=== PATIENT | male | born 1970 | race Caucasian/White ===

== ENCOUNTER 2022-02-17 10:09 | Outpatient (CLI) | payer OTHER, SELFPAY ==
--- NOTE | ~2022-02-17 | XR_ITS ---
EXAMINATION: XR hip LT 1V w AP pelvis DATE: 02/17/2022 10:37 INDICATION: Low back pain TECHNIQUE: Two views of left hip were obtained. COMPARISON: None. FINDINGS: Bone alignment is normal. There is no fracture. There is mild osteoarthritis. Surgical clip s are noted in the right pelvis. IMPRESSION: 1. No acute osseous abnormality. Reviewed, dictated and finalized at location A. DING MACHINE TENDER
--- NOTE | ~2022-02-17 | XR_ITS ---
EXAMINATION: XR lumbar spine 2-3V DATE: 02/17/2022 10:38 INDICATION: Low back pain, unspecified TECHNIQUE: Anteroposterior and lateral views of the lumbar spine, and cone-down lateral view of the l umbosacral junction were obtained. COMPARISON: 07/10/2014 FINDINGS: There are 2 mm of stable retrolisthesis of L3 on L4 and 4 mm stable retrocrural L4 on L5. T he vertebral body heights are maintained. There is no fracture. Small degenerative osteophytes projec t from the anterior endplates of multiple vertebral bodies. There is moderate facet joint osteoarthri tis lower lumbar spine. Surgical clips are noted in the right pelvis. IMPRESSION: 1. Mild lumbar spondylosis without acute findings or significant interval change. Reviewed, dictated and finalized at location A. N TILE MACHINE OPERATOR IMPRESSION: 1. Mild lumbar spondylosis without acute findings or significant interval shari chandler
== END 2022-02-17 10:10 | disposition home or self-care (01) ==
PROVIDERS: PCP Internal Medicine; Visit Provider Internal Medicine
DX: M79.652 Pain in left thigh (principal); M47.896 Other spondylosis, lumbar region
CPT/HCPCS: 72100; 73501

== ENCOUNTER 2022-05-04 09:15 | Outpatient (RCR) | payer OTHER, SELFPAY ==
--- NOTE | 2022-03-29 08:57 | PCPTNOTE ---
Patient called & cancelled scheduled appointment this date due to inclement weather. He has been rescheduled.
--- NOTE | 2022-03-30 15:12 | PCPTNOTE ---
Patient did not show up for scheduled initial evaluation this date.
--- NOTE | 2022-04-06 08:49 | PCPTNOTE ---
Patient called & cancelled scheduled appointment this date due to his transportation cancelling his ride. He has been rescheduled.
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
--- NOTE | 2022-05-09 15:30 | PCPTNOTE ---
Patient called to cancel appointment due to not being able to walk. Patient reports he must have done something to it on Sunday.
--- NOTE | 2022-05-11 10:09 | PCPTNOTE ---
Patient canceled appointment due to food poisoning.
--- NOTE | 2022-05-16 14:10 | PCPTNOTE ---
Patient called to cancel less than 24 hours before due to work.
--- NOTE | 2022-05-16 14:12 | PCPTNOTE ---
Patient called to cancel appointment 05/18 due to having to work.
--- NOTE | 2022-05-29 09:49 | PTOPDC ---
Assessment and note entered by Arlyn Marquez DPT Evaluation Information Assessment Status Discharge - Pt Not Present Subjective Information Assessment PT Clinical Summary Patient is being discharged from therapy at this time. He had cancelled multiple times and stated he would not be able to reschedule for awhile. He will need a new script to resume therapy in the future. Plan of Care Interventions PT Services Indicated Treatment Frequency and - Duration
== END 2022-05-30 10:04 | disposition home or self-care (01) ==
LOC: ANHGOSHPT 09:15
PROVIDERS: PCP Internal Medicine; Visit Provider Internal Medicine
DX: M54.50 Low back pain, unspecified (principal)
CPT/HCPCS: 97110; 97112; 97162; 97530; 99199

== ENCOUNTER 2022-05-08 15:06 | Emergency (ER) | payer OTHER, SELFPAY ==
[2022-05-08 15:13] VITALS: BP 136/91; PULSE 89; RESP 16; TEMP 36.4; O2SAT 100
--- NOTE | 2022-05-08 16:03 | ED.BACK ---
HPI - Back Pain/Injury General Chief Complaint: Back Pain/Injury Stated Complaint: difficulty walking, lower back pain Time Seen by Provider: 05/08/22 16:04 Source: patient, RN notes reviewed and old records reviewed Mode of arrival: ambulatory Limitations: no limitations History of Present Illness HPI Narrative: 51 year old male who presents to [facility] care with complaints of low back pain and difficulty walking. Patient states that he has been attending physical therapy and it really wears him out but then his employer will have him come to work after therapy and it is too much for him. He reports that he has told him work to not schedule him on days he has therapy but they have not been compliant and even have scheduled him at times when he is suppose to be at therapy. Patient reports that he has pain to his lower left back which radiates down his left leg to his knee,reports he has some spasms also. He had been previously prescribed gabapentin and Flexeril but they made him feel like a zombie so he threw them away. Patient instructed to try one and not the other at same time to see if he can tolerate either med. Patient is daily smoker also reports alcohol use and does smoke some marijuana for his anxiety and pain. Patient denies any new injury to his back MD elicited complaint: back pain Pertinent past history: other (chronic back pain) Pain scale (0-10): 3 Location: left lower back (down left leg) Exacerbating factors: movement Treatments prior to arrival: NSAIDS Work related injury: No Related Data Allergies Allergy/AdvReac Type Severity Reaction Status Date / Time No Known Drug Allergies Allergy Mild Other Verified 03/02/22 09:36 Review of Systems Review of Systems: CONSTITUTIONAL: Denies fever, chills, or sweats. CARDIOVASCULAR: Denies chest pain, palpitations, or edema. RESPIRATORY: Denies cough or dyspnea. GASTROINTESTINAL: Denies abdominal pain, nausea, vomiting, or diarrhea. GENITOURINARY: Denies dysuria or hematuria. SKIN: Denies rash or itching. MUSCULOSKELETAL: Reports lower back pain with radiation down left leg into thigh which stops at knee. Joint pain or myalgia. NEUROLOGIC: Denies headache, numbness, or weakness. All systems reviewed & are unremarkable except as noted in HPI and below PMFSH Past Medical History Medical History (Updated 05/09/22 @ 15:14 by Jessica Dempsey NP) GERD (gastroesophageal reflux disease) Hernia double Low back pain Rib fracture Ruptured appendix Surgical History Surgical History H/O hernia repair Hx of appendectomy Family History Family History (Updated 01/16/22 @ 13:13 by Kyle Avalos MD) Father Family history of malignant neoplasm Patient's father is Sibling Family history of malignant neoplasm Patient's sister is in good health Patient's brother is in good health Mother Family history of diabetes mellitus in first degree relative Patient's mother is in good health Diabetes mellitus Cerebrovascular accident Hypertension Social History Social History (Updated 05/09/22 @ 15:05 by Jessica Dempsey NP) Smoking packs per day: 1 Smoking cigarettes per day: 20.0 Years smoked: 30 Smoking pack-years: 30.00 Smoking status: Current every day smoker Tobacco type: cigarettes Alcohol intake: current Alcohol use details: Whiskey 2/5th per week Substance use: current Substance use type: marijuana Last use: this am Lack of Transportation: No Lack of Food: Sometimes True Current Housing: I Have Housing Concerned About Future Housing: No Difficulty Paying Gas/Electric Bills: No Difficulty Paying for Meds: No Currently Unemployed: No Education: High School Diploma/GED Difficulty w/ Childcare or Family Care: No Gender identity (if verbalized by the patient): Male Comments At time of signature, agree with nursing past medical, surgical, social an
== END 2022-05-08 16:27 | disposition home or self-care (01) ==
PROVIDERS: Emergency Provider Registered Nurse; PCP Internal Medicine
DX: M54.50 Low back pain, unspecified (principal); F17.210 Nicotine dependence, cigarettes, uncomplicated; F12.90 Cannabis use, unspecified, uncomplicated; K21.9 Gastro-esophageal reflux disease without esophagitis
CPT/HCPCS: 99213; G0463

== ENCOUNTER 2022-07-21 11:50 | Emergency (ER) | payer OTHER, SELFPAY ==
--- NOTE | ~2022-07-21 | XR_ITS ---
EXAMINATION: XR hip LT min 2V DATE: 07/21/2022 12:23 INDICATION: Left hip pain. TECHNIQUE: 2 views of left hip were obtained. COMPARISON: Left hip radiographs 02/17/2022 FINDINGS: Bone alignment is normal. No fracture. There is moderate left hip osteoarthritis. There is a chronic ossicle lateral to the acetabulum. IMPRESSION: 1. Moderate left hip osteoarthritis. Reviewed, dictated and finalized at location A.
--- NOTE | 2022-07-21 11:53 | ED.EXTPRO ---
HPI - Extremity Problem General Chief complaint: Extremity Injury, Lower Stated complaint: L LEG PAIN Time Seen by Provider: 07/21/22 11:52 Source: patient Mode of arrival: ambulatory Limitations: no limitations History of Present Illness HPI Narrative: Mr. Mello is a 52-year-old male patient presenting to the clinic with complaints of left hip/thigh/knee pain x2 months. He reports he has had images done of his left hip and knee that has shown some arthritis. States he was completing physical therapy for his back and now he has developed leg pain but his back pain has improved. States that his sister by him a new mattress and he feels as though this improved his back pain however he stated he did fall out of bed and landed on the left elbow and left hip on Sunday and has exacerbated the pain in his hip. Is wearing a knee brace to the knee and states that this is not currently hurting however he has to wear the knee brace as he feels as though his knee will give out due to the pain in his hip. 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 Pain is currently a 4/10. States that the pain is shooting in the left hip and aching in the knee. No recent injury to his knee. Related Data Allergies Allergy/AdvReac Type Severity Reaction Status Date / Time No Known Drug Allergies Allergy Mild Other Verified 07/21/22 11:58 Review of Systems Review of Systems: Pertinent positives per HPI. Patient denies any fever, chills, rash, headache, visual changes, dizziness, cough, runny nose, sore throat, shortness of breath, chest pain, palpitations, nausea, vomiting, diarrhea, constipation, abdominal pain, or any urinary issues. [facility] Past Medical History Medical History GERD (gastroesophageal reflux disease) Hernia double Low back pain Rib fracture Ruptured appendix Surgical History Surgical History H/O hernia repair Hx of appendectomy Family History Family History Father Family history of malignant neoplasm Patient's father is Sibling Family history of malignant neoplasm Patient's sister is in good health Patient's brother is in good health Mother Family history of diabetes mellitus in first degree relative Patient's mother is in good health Diabetes mellitus Cerebrovascular accident Hypertension Social History Social History Smoking packs per day: 1 Smoking cigarettes per day: 20.0 Years smoked: 30 Smoking pack-years: 30.00 Smoking status: Current every day smoker Tobacco type: cigarettes Alcohol intake: current Alcohol use details: Whiskey 2/5th per week Substance use: current Substance use type: marijuana Last use: this am Lack of Transportation: No Lack of Food: Sometimes True Current Housing: I Have Housing Concerned About Future Housing: No Difficulty Paying Gas/Electric Bills: No Difficulty Paying for Meds: No Currently Unemployed: No Education: High School Diploma/GED Difficulty w/ Childcare or Family Care: No Gender identity (if verbalized by the patient): Male Comments At the time of my signature, I reviewed and agree with the nursing past medical, surgical, social, and family history. There is no relevant family history pertinent to the patient complaint. Exam Narrative: General: Well-developed, well nourished, in no apparent distress Head: Normocephalic, atraumatic. Cardio: Regular rate and rhythm, s1 and s2 normal, no murmur appreciated. Resp: Clear to auscultation bilaterally, no rhonchi, rales, wheezing or rubs. Musculoskeletal: No deformity, tender to palpation over the anterior hip joint, pain with flexion of the left hip and internal rotation, nontender to palpation over the lef
[2022-07-21 12:04] VITALS: BP 115/92; PULSE 85; RESP 16; TEMP 36.6; O2SAT 99
== END 2022-07-21 12:39 | disposition home or self-care (01) ==
PROVIDERS: Emergency Provider Nurse Practitioner Family; PCP Internal Medicine
DX: M16.12 Unilateral primary osteoarthritis, left hip (principal); M25.562 Pain in left knee; F17.210 Nicotine dependence, cigarettes, uncomplicated; F12.90 Cannabis use, unspecified, uncomplicated; K21.9 Gastro-esophageal reflux disease without esophagitis
CPT/HCPCS: 73502; 99213; G0463

== ENCOUNTER 2022-10-15 20:12 | Emergency (ER) | payer OTHER, SELFPAY ==
--- NOTE | ~2022-10-15 | CT_ITS ---
EXAMINATION: CT cervical spine wo con DATE: 10/15/2022 20:46 INDICATION: Head injury. TECHNIQUE: Computed tomography (CT) of the cervical spine was performed without intravenous contrast. Automated exposure control and iterative reconstruction technique were employed. The dose-length pro duct was 532.49 mGy-cm. COMPARISON: CT cervical spine 01/21/2015 FINDINGS: There is a 3.6 cm subcutaneous mass in the posterior neck, likely a sebaceous cyst. There i s 8 degrees levocurvature of cervicothoracic spine. There is hypolordosis of cervical spine. Vertebra l body heights are normal. There is mildly decreased disc height at C3-C4, moderately decreased disc height at C4-C5, mildly decreased disc height at C5-C6, and severely decreased disc height at C6-C7. The following disc levels are specifically discussed: C2-C3: There is mild bilateral uncovertebral joint osteoarthritis. There is mild bilateral facet join t osteoarthritis. There is no neural foraminal stenosis. There is no central canal stenosis. C3-C4: There is severe bilateral uncovertebral joint osteoarthritis. There is no facet joint osteoart hritis. There is mild right neural foraminal stenosis. There is no central canal stenosis. C4-C5: There is severe bilateral uncovertebral joint osteoarthritis. There is no facet joint osteoart hritis. There is moderate right and mild left neural foraminal stenosis. There is mild central canal stenosis. C5-C6: There is mild bilateral uncovertebral joint osteoarthritis. There is no facet joint osteoarthr itis. There is no neural foraminal stenosis. There is mild central canal stenosis. C6-C7: There is severe bilateral uncovertebral joint osteoarthritis. There is mild bilateral facet josé int osteoarthritis. There is mild right and moderate left neural foraminal stenosis. There is mild ce ntral canal stenosis. C7-T1: There is no uncovertebral joint osteoarthritis. There is mild bilateral facet joint osteoarthr itis. There is no neural foraminal stenosis. There is no central canal stenosis. IMPRESSION: 1. No fracture. 2. Severe cervical spondylosis. Reviewed, dictated and finalized at location E.
--- NOTE | ~2022-10-15 | CT_ITS ---
EXAMINATION: CT brain wo con DATE: 10/15/2022 20:46 INDICATION: Head injury. TECHNIQUE: Computed tomography (CT) of the head was performed without intravenous contrast. The mA wa s adjusted according to patient size. Iterative reconstruction technique was employed. The dose-lengt h product was 605.33 mGy-cm. COMPARISON: Head CT 01/21/2015 FINDINGS: There is no intracranial hemorrhage, acute infarction, or abnormal intracranial mass lesion . The ventricles are normal in size. There is mild mucosal thickening in the ethmoid sinuses. The orb its are normal. The mastoid air cells are normal. IMPRESSION: 1. Normal brain. Reviewed, dictated and finalized at location E. IMPRESSION: 1. Normal brain.
[2022-10-15 20:12] VITALS: BP 115/80; PULSE 75; RESP 15; TEMP 36.5; O2SAT 98
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
[2022-10-15] MEDS: TETANUS,DIPHTHERIA,AC PERTUSSIS ADULT (0.5 ML) BOOSTRIX IM (21:01)
[2022-10-15 21:18] VITALS: BP 128/74; PULSE 78; RESP 15; O2SAT 100
== END 2022-10-15 21:23 | disposition home or self-care (01) ==
PROVIDERS: Emergency Provider Emergency Medicine; PCP Family Medicine
DX: S01.01XA Laceration without foreign body of scalp, initial encounter (principal); Z23 Encounter for immunization; K21.9 Gastro-esophageal reflux disease without esophagitis; F17.210 Nicotine dependence, cigarettes, uncomplicated; W01.190A Fall on same level from slipping, tripping and stumbling with subsequent striking against furniture, initial encounter
CPT/HCPCS: 70450; 72125; 90471; 90715; 99284

== ENCOUNTER 2023-01-09 01:34 | Day surgery (SDC) | payer OTHER, SELFPAY ==
[2022-12-07 15:19] VITALS: BMI 28.8
--- NOTE | 2023-01-01 16:03 | SUR.PREOP ---
Spoke with patient and verified new date and time for his procedure on 01/09/2023. Patient stated no new medications or medical hx needs to be added to chart.
--- NOTE | 2023-01-05 11:41 | SUR.PREOP ---
Patient called regarding upcoming procedure. Message left on patient's voicemail regarding preop instructions and appointment times. call back number given.
[2023-01-09 11:45] VITALS: BP 159/91; PULSE 89; RESP 18; TEMP 36.2; O2SAT 99
[2023-01-09] MEDS: LACTATED RINGERS 1,000 ML 150 ML IV CONT (11:55)
--- NOTE | 2023-01-09 12:15 | WPDANESEPPF ---
Anes - Initial Pre Proc Eval Procedure: Operation Date: 01/09/23 13:00 Proposed Procedures p Colonoscopy - Albert Ramirez MD Date/Time: 01/09/23 12:15 Surgeon: Albert Ramirez MD Pre Op Diagnosis: Other fecal abnormalities Patient Data Age: 52 Gender: M Height: 1.78 m Weight: 93.6 kg Last Vital Signs Temp 97.2 F L 01/09/23 11:45 Pulse 89 01/09/23 11:45 Resp 18 01/09/23 11:45 BP 159/91 H 01/09/23 11:45 Pulse Ox 99 01/09/23 11:45 O2 Del Method Room Air 01/09/23 11:45 Allergies Allergy/AdvReac Type Severity Reaction Status Date / Time No Known Drug Allergies Allergy Mild Other Verified 01/09/23 11:43 Home Medications Medication Instructions Recorded Confirmed Type thiamine HCl (vitamin B1) 50 mg 50 mg PO DAILY #90 tabs 03/02/22 12/07/22 Rx tablet ibuprofen 800 mg tablet 800 mg PO TID PRN pain #90 tabs 10/30/22 12/07/22 Rx cyclobenzaprine 10 mg tablet 10 mg PO Q12H PRN muscle spasm #60 12/08/22 01/09/23 Rx tabs Patient hx anesthesia problems: none Family hx anesthesia problems: none Results Review: All pre-operative results and documents have been reviewed as part of the pre-operative evaluation. [facility] Past Medical History Medical History GERD (gastroesophageal reflux disease) Hernia double Low back pain Rib fracture Ruptured appendix Surgical History Surgical History H/O hernia repair Hx of appendectomy Family History Family History Father Family history of malignant neoplasm Patient's father is Sibling Family history of malignant neoplasm Patient's sister is in good health Patient's brother is in good health Mother Family history of diabetes mellitus in first degree relative Patient's mother is in good health Diabetes mellitus Cerebrovascular accident Hypertension Social History Social History Smoking packs per day: 1 Smoking cigarettes per day: 20.0 Years smoked: 40 Smoking pack-years: 40.00 Smoking status: Current every day smoker Tobacco type: cigarettes Alcohol intake: current Alcohol use details: 5-6 fifths of alcohol a week Substance use: current Substance use type: marijuana Last use: 12/07/22 Lack of Transportation: No Lack of Food: Never True Current Housing: I Have Housing Concerned About Future Housing: No Difficulty Paying Gas/Electric Bills: No Difficulty Paying for Meds: No Currently Unemployed: No Education: High School Diploma/GED Difficulty w/ Childcare or Family Care: No Living arrangements: alone Gender identity (if verbalized by the patient): Male Anes - Eval Final PreProcedure Day of Procedure 01/09/23 12:15 Patient weight: normal Heart: irregular rhythm Lungs: clear to auscultation Airway: Mallampati scale (poor dentition) Neurological: alert and oriented Last oral intake: >/= 8 hours ASA classification: III Emergent: no Anesthetic plan: proceed Anesthesia type and monitoring: general GIVS and standard monitoring Results Review: All pre-operative results and documents have been reviewed as part of the pre-operative evaluation. Informed Consent: The patient's anesthetic plan and its attendant risks and benefits were discussed with the patient/family/POA. Questions were solicited and answers provided to the satisfaction of the patient/family/POA.
--- NOTE | 2023-01-09 12:34 | PM.HPGS ---
History of Present Illness History of Present Illness Consent: Risks, benefits, and alternatives have been discussed and questions answered. Patient agrees to proceed with procedure. Chief complaint: Other fecal abnormalities Narrative: Krishna Mello is a 52 year old male here for first screening colonoscopy, had + cologuard Review of Systems Constitutional: Constitutional: Denies headache(s) and Denies weakness Eyes: Eyes: Denies blurry vision ENT: Reports Normal hearing present, Denies headache(s) and Denies neck pain Cardiovascular: Cardiovascular: Denies chest pain and Denies dyspnea Respiratory: Respiratory: Denies dyspnea Gastrointestinal: Gastrointestinal: Reports no additional gastrointestinal complaints Genitourinary: Genitourinary: Denies dysuria Musculoskeletal: Musculoskeletal: Denies neck pain Integumentary/Breasts: Skin/Breast: Denies dry skin Neurologic: Reports Normal hearing present, Denies headache(s) and Denies weakness Psychiatric: Psychiatric: Denies anxiety Endocrine: Endocrine: Denies change in body appearance Hematologic/Lymphatic: Hematologic/Lymphatic: Denies easy bleeding Allergic/Immunologic: Allergic/Immunologic: Denies urticaria PMFSH Past Medical History Medical History GERD (gastroesophageal reflux disease) Hernia double Low back pain Rib fracture Ruptured appendix Surgical History Surgical History H/O hernia repair Hx of appendectomy Family History Family History Father Family history of malignant neoplasm Patient's father is Sibling Family history of malignant neoplasm Patient's sister is in good health Patient's brother is in good health Mother Family history of diabetes mellitus in first degree relative Patient's mother is in good health Diabetes mellitus Cerebrovascular accident Hypertension Social History Social History Smoking packs per day: 1 Smoking cigarettes per day: 20.0 Years smoked: 40 Smoking pack-years: 40.00 Smoking status: Current every day smoker Tobacco type: cigarettes Alcohol intake: current Alcohol use details: 5-6 fifths of alcohol a week Substance use: current Substance use type: marijuana Last use: 12/07/22 Lack of Transportation: No Lack of Food: Never True Current Housing: I Have Housing Concerned About Future Housing: No Difficulty Paying Gas/Electric Bills: No Difficulty Paying for Meds: No Currently Unemployed: No Education: High School Diploma/GED Difficulty w/ Childcare or Family Care: No Living arrangements: alone Gender identity (if verbalized by the patient): Male Meds Home Medications and Allergies Home Medications Medication Instructions Recorded Confirmed Type thiamine HCl (vitamin B1) 50 mg 50 mg PO DAILY #90 tabs 03/02/22 12/07/22 Rx tablet ibuprofen 800 mg tablet 800 mg PO TID PRN pain #90 tabs 10/30/22 12/07/22 Rx cyclobenzaprine 10 mg tablet 10 mg PO Q12H PRN muscle spasm #60 12/08/22 01/09/23 Rx tabs Allergies Allergy/AdvReac Type Severity Reaction Status Date / Time No Known Drug Allergies Allergy Mild Other Verified 01/09/23 11:43 Vital Signs Vital Signs - 24 hr 01/09/23 11:45 Temperature 97.2 F L Pulse Rate 89 Respiratory Rate 18 Blood Pressure 159/91 H Pulse Oximetry 99 Oxygen Delivery Room Air Exam Const: General: comfortable and no acute distress HENMT: Face/Nose/Sinus: Normal nares present Eyes: General: appearance normal, both eyes and all related structures Neck: Neck: no JVD Resp: Auscultation: clear to auscultation bilaterally Cardio: Rate: regular rate Rhythm: regular rhythm GI: Inspection: non-distended GI Palp: Yes Soft to palpation
[2023-01-09 13:01] VITALS: BP 115/65; PULSE 78; RESP 17; O2SAT 96
[2023-01-09 13:11] VITALS: BP 125/86; PULSE 78; RESP 25; O2SAT 100
[2023-01-09 13:21] VITALS: BP 142/92; PULSE 79; RESP 21; O2SAT 100
== END 2023-01-09 13:27 | disposition home or self-care (01) ==
PROVIDERS: PCP Family Medicine; Visit Provider Internal Medicine Gastroenterology
PROC: 0DJD8ZZ Inspection of Lower Intestinal Tract, Via Natural or Artificial Opening Endoscopic (ICD-10-PCS; CPT 45378; principal; 2023-01-09 13:00)
DX: K52.9 Noninfective gastroenteritis and colitis, unspecified (principal); K62.6 Ulcer of anus and rectum; K63.5 Polyp of colon; R19.5 Other fecal abnormalities; F17.210 Nicotine dependence, cigarettes, uncomplicated; F12.90 Cannabis use, unspecified, uncomplicated
CPT/HCPCS: 45385; 45380; 88305; J2704; J7120

== ENCOUNTER 2023-04-25 11:12 | Outpatient (CLI) | payer OTHER, SELFPAY ==
--- NOTE | ~2023-04-25 | XR_ITS ---
Left Knee Technique: AP, lateral, and sunrise views were obtained. Clinical History: Pain Findings: No fracture or dislocation is seen. Osseous alignment is anatomic. Joint spaces are preserv ed without degenerative or erosive change. Soft tissues are unremarkable. No joint effusion is seen. Impression: Unremarkable left knee radiographs. Reviewed, dictated and finalized at location . BILITATION COORDINATOR Impression: Unremarkable left knee radiographs.
== END 2023-04-25 11:13 | disposition home or self-care (01) ==
PROVIDERS: PCP Family Medicine; Visit Provider Family Medicine
DX: M25.562 Pain in left knee (principal)
CPT/HCPCS: 73562

== ENCOUNTER 2023-05-07 17:52 | Outpatient (CLI) | payer OTHER, SELFPAY ==
--- NOTE | ~2023-05-07 | XR_ITS ---
EXAMINATION: XR femur LT min 2V INDICATION: Left leg pain TECHNIQUE: Two views of the left femur are obtained on four radiographs. COMPARISON: 07/21/2022 FINDINGS: Bone alignment is normal. There is no fracture. There is moderate osteoarthritis of the hip . Again noted is a chronic ossicle lateral to the acetabulum. There is mild osteoarthritis of the kne e. The soft tissues are unremarkable. IMPRESSION: 1. Unchanged moderate osteoarthritis of the left hip without acute osseous abnormality of the femur. Reviewed, dictated and finalized at location L. EDICAL PHOTOGRAPHER IMPRESSION: 1. Unchanged moderate osteoarthritis of the left hip without acute osseous abno rmality of the femur.
== END 2023-05-07 17:53 | disposition home or self-care (01) ==
LOC: ANHIMG 17:53
PROVIDERS: PCP Family Medicine; Visit Provider Family Medicine
DX: M79.652 Pain in left thigh (principal)
CPT/HCPCS: 73552

== ENCOUNTER 2023-08-08 23:33 | Emergency (ER) | payer OTHER, SELFPAY ==
--- NOTE | ~2023-08-08 | CT_ITS ---
Noncontrast CT scan of the cervical spine Technique: Multiple contiguous axial [address] images of the cervical spine were obtained and rec onstructed in 2D sagittal and coronal planes on the acquisition scanner. Dose reduction technique was used on this scan by utilizing automated exposure control, adjustment of the mA and/or kV according to patient size. The dose-length product (DLP) was 464.08 mGy-cm. Clinical History: Pain COMPARISON: 10/15/2022 Findings: No fractures or dislocations. There is mild reversal normal cervical lordosis. There is mi ld degenerative disc changes throughout the cervical spine. There is mild uncovertebral joint degener ative change of the cervical spine. There is right neural foraminal narrowing at C4-C5, with right fo raminal osteophyte and minimal facet arthropathy. There is disc bulge at C5-C6, with probable mild to moderate canal stenosis. There is bilateral neural foraminal narrowing at C6-C7, right worse than le ft. Probable disc ossify complex present, with probable at least mild canal stenosis. Suspected at le ast mild canal stenosis at C4-C5 with disc bulge. No prevertebral soft tissue swelling. Impression: No fracture or subluxation of the cervical spine. Degenerative spondylosis, as above. Reviewed, dictated and finalized at location . Impression: No fracture or subluxation of the cervical spine. Degenerative spondylosis, as above.
--- NOTE | ~2023-08-08 | CT_ITS ---
Non-contrast Head CT History: Head injury COMPARISON: 10/15/2022 Technique: Axial non-contrast imaging of the brain was performed. Dose reduction technique was used on this scan by utilizing automated exposure control and iterative reconstruction technique. The dose -length product (DLP) was 605.33 mGy-cm. Findings: There is acute subarachnoid hemorrhage in the bifrontal regions. Brain parenchyma appears normal. The ventricles and subarachnoid spaces are normal in size. The calvarium appears normal. The visualized paranasal sinuses and mastoid air cells are clear. Impression: Acute subarachnoid hemorrhage in the bifrontal regions. Reviewed, dictated and finalized at location M. Impression: Acute subarachnoid hemorrhage in the bifrontal regions.
[2023-08-08 23:32] VITALS: BP 149/95; PULSE 101; RESP 18; TEMP 36.7; O2SAT 93
[2023-08-08 23:39] VITALS: BP 149/95; PULSE 99; RESP 15; O2SAT 93
[2023-08-08 23:46] VITALS: BP 154/128; PULSE 100; RESP 18; O2SAT 91
--- NOTE | 2023-08-09 00:41 | ED.FALL ---
HPI - Fall General Chief Complaint: Fall <CARISSA Pack Last Filed: 08/09/23 02:12> Stated Complaint: fall/etoh <CARISSA Pack Last Filed: 08/09/23 02:12> Time Seen by Provider: 08/08/23 23:59 <CARISSA Pack Last Filed: 08/09/23 02:12> Source: patient <CARISSA Pack Last Filed: 08/09/23 02:12> Mode of arrival: ambulatory <CARISSA Pack Last Filed: 08/09/23 02:12> Limitations: no limitations <CARISSA Pack Last Filed: 08/09/23 02:12> History of Present Illness HPI Narrative: This is a 53-year-old male with PMH of HLD, alcohol abuse who presents to the ED via EMS for chief complaint of a fall at the bar this evening. Patient reports that he had about 3 pints of beer to drink. Also endorses marijuana use. He is unsure of what happened this evening pertaining to the fall. He does reports severe headache. Per EMS patient was found down and unsure how long he was down. He suffered a wound and bruise to the back of the head. Patient reports that he has had facial droopiness that is chronic due to stroke in the past. Does not take any blood thinners. <CARISSA Pack Last Filed: 08/09/23 02:12> Related Data Allergies/Adverse Reactions: Allergies Allergy/AdvReac Type Severity Reaction Status Date / Time No Known Drug Allergies Allergy Mild Other Verified 08/08/23 23:44 <CARISSA Pack Last Filed: 08/09/23 02:12> Review of Systems Review of Systems: All systems as dictated in HPI <CARISSA Pack Last Filed: 08/09/23 02:12> [facility] Past Medical History Medical History: Medical History GERD (gastroesophageal reflux disease) Hernia double Low back pain Rib fracture Ruptured appendix <CARISSA Pack Last Filed: 08/09/23 02:12> Surgical History Surgical History: Surgical History H/O hernia repair Hx of appendectomy <CARISSA Pack Last Filed: 08/09/23 02:12> Family History Family History: Family History Father Family history of malignant neoplasm Patient's father is Sibling Family history of malignant neoplasm Patient's sister is in good health Patient's brother is in good health Mother Family history of diabetes mellitus in first degree relative Patient's mother is in good health Diabetes mellitus Cerebrovascular accident Hypertension <CARISSA Pack Last Filed: 08/09/23 02:12> Social History Social History: Social History Smoking packs per day: 1 Smoking cigarettes per day: 20.0 Years smoked: 40 Smoking pack-years: 40.00 Smoking status: Current every day smoker Tobacco type: cigarettes Alcohol intake: current Alcohol use details: 5-6 fifths of alcohol a week Substance use: current Substance use type: marijuana Last use: 12/07/22 Lack of Transportation: No Lack of Food: Never True Current Housing: I Have Housing Concerned About Future Housing: No Difficulty Paying Gas/Electric Bills: No Difficulty Paying for Meds: No Currently Unemployed: No Education: High School Diploma/GED Difficulty w/ Childcare or Family Care: No Living arrangements: alone Gender identity (if verbalized by the patient): Male <CARISSA Pack Last Filed: 08/09/23 02:12> Exam Narrative: GENERAL: Well-appearing, well-nourished, and in no acute distress. HEAD: bruising and swelling to the occiput and top of the scalp. Tenderness throughout these areas. EYES: PERRLA and EOMI. ENT: Nares clear, no rhinorrhea or epistaxis. Mucous membranes moist. Oropharynx without tonsillar hypertrophy exudate or other lesions. NECK: Supple. No adenopathy or masses. CHEST: No respirat
[2023-08-09] MEDS: SODIUM CHLORIDE 0.9% IV 1,000 ML 999 ML IV CONT (00:43)
[2023-08-09] MEDS: MORPHINE SULFATE (*CRX) 4 MG/ML INJ IV PUSH (00:43)
[2023-08-09] MEDS: ONDANSETRON INJ 4 MG/2 ML VIAL IV PUSH (00:43)
[2023-08-09 00:50] LABS: Basophils Absolute Auto 0.1 K/mm3 (0.0-0.1); Basophils Percent Auto 1.1 % (0.2-1.2); Eosinophils Absolute Auto 0.3 K/mm3 (0-0.3); Eosinophils Percent Auto 4.2 % (0-4.4); Hematocrit 43.4 % (42.0-52.0); Hemoglobin 14.9 g/dL (14.0-18.0); Immature Granulocyte Absolute 0.01 K/mm3 (0.00-0.031); Immature Granulocyte Percent A 0.1 % (0-0.5); Lymphocytes Absolute Auto 1.88 K/mm3 (0.9-3.2); Lymphocytes Percent Auto 25.4 % (18.3-44.2); Mean Corpuscular HGB Conc 34.3 g/dl (32-36); Mean Corpuscular Hemoglobin 33.4 pg (26-34); Mean Corpuscular Volume 97.3 fl (80-100); Mean Platelet Volume 8.6 fl (7.4-10.4); Monocytes Absolute Auto 0.5 K/mm3 (0.1-0.6); Neutrophils Absolute Auto 4.6 K/mm3 (1.3-6.7); Neutrophils Percent Auto 62.2 % (45.5-73.1); Platelet Count Result 156 k/mm3 (150-375); Red Blood Count 4.46 M/mm3 (4.6-6.20); Red Cell Distribution Width 13.1 % (11.5-14.5); White Blood Count 7.4 K/mm3 (4.5-10.0)
--- NOTE | 2023-08-09 00:51 | PC.NURSE ---
This RN called the pt sister at this time to stone rigger her an update on pt status. Pt stat rad came back and showed a brain bleed. Pt states its okay to call his sister and stone rigger he an update. Yunior GRAY notified getting a hold of [facility] for transfer.
[2023-08-09 01:01] LABS: Alanine Aminotransferase 42 U/L (6-50); Albumin Level 5.1 g/dL (3.5-5.1); Alkaline Phosphatase 58 U/L (38-126); Anion Gap 11 mmol/L (4-12); Aspartate Amino Transferase 53 U/L (17-59); Bilirubin,Total 0.8 mg/dL (0.2-1.3); Blood Urea Nitrogen 16 mg/dL (9-20); Calcium 9.4 mg/dL (8.4-10.2); Carbon Dioxide 23 mmol/L (22-30); Chloride 104 mmol/L (98-107); Estimated CRCL calculation 80 ml/min; Estimated Glomerular Filt Rate > 60; Glucose 107 mg/dL (65-110); Potassium 3.9 mmol/L (3.4-5.0); Sodium 138 mmol/L (137-145)
[2023-08-09 01:05] VITALS: BP 153/90; PULSE 90; RESP 24; O2SAT 94
[2023-08-09 01:07] VITALS: BP 153/90; PULSE 89; RESP 15; O2SAT 94
[2023-08-09 01:07] LABS: Prothrombin Time 13.7 Seconds (11.1-14.7)
--- NOTE | 2023-08-09 01:13 | PC.NURSE ---
Pt has had multiple complaints regarding C collar. Verbal order from Yunior KERR to remove C collar.
--- NOTE | 2023-08-09 01:17 | PC.NURSE ---
0104: This RN gave report to Yosvany at [facility] ED. All paper work finished. Printed pt ED visit form and scan reports for [facility]. Helicopter notified and states they will be here in 11 minutes.
--- NOTE | 2023-08-09 01:38 | PC.NURSE ---
This RN called pt sister to give update that pt has left the hospital and is now heading to [facility].
== END 2023-08-09 01:44 | disposition short-term general hospital (02) ==
PROVIDERS: Emergency Provider Physician Assistant; PCP Family Medicine
DX: I60.9 Nontraumatic subarachnoid hemorrhage, unspecified (principal); W19.XXXA Unspecified fall, initial encounter; K21.9 Gastro-esophageal reflux disease without esophagitis; F17.210 Nicotine dependence, cigarettes, uncomplicated
CPT/HCPCS: 36415; 70450; 72125; 80053; 85025; 85610; 85730; 96361; 96374; 96375; 99291; J2270; J2405; J7030

== ENCOUNTER 2023-12-17 13:21 | Outpatient (CLI) | payer OTHER, SELFPAY ==
--- NOTE | ~2023-12-17 | XR_ITS ---
Clinical Indication: Trauma PA and lateral views of the chest: Comparison: 02/25/2019 Findings: The lungs are clear, without evidence of focal consolidation or pleural effusion. Cardiome diastinal silhouette is within normal limits. Bones and soft tissues are unremarkable. Impression: Normal chest. Reviewed, dictated and finalized at [facility]. Impression: Normal chest.
[2023-12-17 14:17] LABS: Hematocrit 46.9 % (42.0-52.0); Hemoglobin 16.6 g/dL (14.0-18.0); Mean Corpuscular HGB Conc 35.4 g/dl (32-36); Mean Corpuscular Hemoglobin 35.7 pg (26-34); Mean Corpuscular Volume 100.9 fl (80-100); Mean Platelet Volume 9.1 fl (7.4-10.4); Platelet Count Result 188 k/mm3 (150-375); Red Blood Count 4.65 M/mm3 (4.6-6.20); Red Cell Distribution Width 12.7 % (11.5-14.5); White Blood Count 7.7 K/mm3 (4.5-10.0)
[2023-12-17 14:26] LABS: Hemoglobin A1C 5.7 % (<5.7)
[2023-12-17 14:27] LABS: Alanine Aminotransferase 44 U/L (6-50); Albumin Level 4.6 g/dL (3.5-5.1); Alkaline Phosphatase 61 U/L (38-126); Anion Gap 9 mmol/L (4-12); Aspartate Amino Transferase 39 U/L (17-59); Bilirubin,Total 0.6 mg/dL (0.2-1.3); Blood Urea Nitrogen 18 mg/dL (9-20); Carbon Dioxide 31 mmol/L (22-30); Chloride 99 mmol/L (98-107); Estimated Glomerular Filt Rate > 60; Glucose 115 mg/dL (65-110); Potassium 4.3 mmol/L (3.4-5.0); Sodium 139 mmol/L (137-145)
[2023-12-17 14:29] LABS: Prothrombin Time 13.2 Seconds (11.1-14.7)
[2023-12-17 14:31] LABS: Appearance Urine Clear (Clear); Bilirubin Urine Negative (Negative); Blood Urine Negative (Negative); Color Urine Dark Yellow (Yellow); Glucose Urine UA Negative (Negative); Ketones Urine Trace mg/dL (Negative); Leukocyte Esterase Ur Negative LEU/UL (Negative); Nitrate Urine Negative (Negative); Protein Urine Negative (Negative); Specific Grav Ur 1.026 (1.001-1.035); Urobilinogen Urine 0.2 mg/dL (<2.0); pH Urine 5.5 (5.0-9.0)
[2023-12-17 14:36] LABS: Add Urine Microscopic? NO
== END 2023-12-17 13:22 | disposition home or self-care (01) ==
LOC: ANHIMG 13:24
PROVIDERS: PCP Family Medicine; Visit Provider Orthopaedic Surgery
DX: Z01.818 Encounter for other preprocedural examination (principal); S06.5XAA Traumatic subdural hemorrhage with loss of consciousness status unknown, initial encounter; Z87.891 Personal history of nicotine dependence; X58.XXXA Exposure to other specified factors, initial encounter
CPT/HCPCS: 36415; 71046; 80053; 81003; 83036; 85027; 85610; 85730

== ENCOUNTER 2024-03-06 11:34 | Outpatient (CLI) | payer OTHER, SELFPAY ==
--- NOTE | ~2024-03-06 | XR_ITS ---
CHEST RADIOGRAPH, PA AND LATERAL CLINICAL HISTORY: Z01.818 - Encounter for other preprocedural examination . COMPARISON: 12/17/2023 TECHNIQUE: PA and lateral views of the chest. FINDINGS The cardiomediastinal silhouette is unremarkable. The lungs are clear. Visualized osseous structures and soft tissues are unremarkable. IMPRESSION: No focal infiltrate or effusion. Reviewed, dictated and finalized at location A. PMENT HIRE MANAGER
--- NOTE | 2024-03-06 10:41 | ECG_ITS ---
Test Date: 2024-03-06 10:56:47 Measurements Intervals [place] Rate: 75 P: 48 NJ: 157 QRS: 10 QRSD: 87 T: 33 QT: 356 QTc: 398 Interpretive Statements SINUS RHYTHM No previous ECG available for comparison Electronically Signed On 03-10-2024 14:22:55 SECONDARY TEACHER by Chris Arroyo M.D.
[2024-03-06 12:04] LABS: Hematocrit 47.8 % (42.0-52.0); Hemoglobin 16.5 g/dL (14.0-18.0); Mean Corpuscular HGB Conc 34.5 g/dl (32-36); Mean Corpuscular Hemoglobin 34.2 pg (26-34); Mean Corpuscular Volume 99.2 fl (80-100); Mean Platelet Volume 9.2 fl (7.4-10.4); Platelet Count Result 168 k/mm3 (150-375); Red Blood Count 4.82 M/mm3 (4.6-6.20); Red Cell Distribution Width 12.6 % (11.5-14.5); White Blood Count 6.5 K/mm3 (4.5-10.0)
[2024-03-06 12:06] LABS: Add Urine Microscopic? NO; Appearance Urine Clear (Clear); Bilirubin Urine Negative (Negative); Blood Urine Negative (Negative); Color Urine Yellow (Yellow); Glucose Urine UA Negative (Negative); Ketones Urine Negative (Negative); Leukocyte Esterase Ur Negative LEU/UL (Negative); Nitrate Urine Negative (Negative); Protein Urine Negative (Negative); Specific Grav Ur 1.021 (1.001-1.035); pH Urine 5.5 (5.0-9.0)
[2024-03-06 12:16] LABS: Alanine Aminotransferase 60 U/L (6-50); Albumin Level 4.6 g/dL (3.5-5.1); Alkaline Phosphatase 62 U/L (38-126); Anion Gap 7 mmol/L (4-12); Aspartate Amino Transferase 50 U/L (17-59); Bilirubin,Total 0.7 mg/dL (0.2-1.3); Blood Urea Nitrogen 18 mg/dL (9-20); Calcium 9.7 mg/dL (8.4-10.2); Carbon Dioxide 26 mmol/L (22-30); Chloride 105 mmol/L (98-107); Estimated Glomerular Filt Rate > 60; Glucose 107 mg/dL (65-110); Potassium 4.3 mmol/L (3.4-5.0); Sodium 138 mmol/L (137-145)
[2024-03-06 12:18] LABS: Prothrombin Time 13.2 Seconds (11.1-14.7)
[2024-03-06 12:19] LABS: Partial Thromboplastin Time 26.9 Seconds (22.3-36.8)
[2024-03-06 12:32] LABS: Hemoglobin A1C 5.9 % (<5.7)
== END 2024-03-06 11:35 | disposition home or self-care (01) ==
PROVIDERS: PCP Family Medicine; Referring Provider Orthopaedic Surgery; Visit Provider Family Medicine
DX: Z01.818 Encounter for other preprocedural examination (principal); K21.9 Gastro-esophageal reflux disease without esophagitis; R20.0 Anesthesia of skin
CPT/HCPCS: 36415; 71046; 80053; 81003; 83036; 85027; 85610; 85730; 87086; 93005

== ENCOUNTER 2024-07-19 14:18 | Outpatient (CLI) | payer OTHER, SELFPAY ==
--- NOTE | ~2024-07-19 | MR_ITS ---
MR brain/brain stem wo con Ordering provider: Sp Stafford MD History: 54 years Male with . R55 - Syncope and collapse . Comparison: CT head performed on August 08, 2023 Technique: MRI brain was performed without contrast. FINDINGS: BONES: Normal. CRANIOCERVICAL JUNCTION: normal. PITUITARY: Normal. MAJOR INTRACRANIAL VESSELS: Normal flow void. OPTIC NERVES AND CRANIAL NERVES VII AND VIII COMPLEXES: Grossly normal. BRAIN PARENCHYMA AND CSF SPACES: Mild nonspecific T2 white matter hyperintensities are seen in a endy ateral periventricular and deep white matter distribution which are likely related to chronic ischemi c small vessel disease. Mild diffuse cortical atrophy. Encephalomalacia seen in the left frontal lob e area most likely due to old trauma, infarct or free or hemorrhage. The brainstem and cerebellum are normal. No acute intracranial hemorrhage. Susceptibility artifact is seen in the frontal lobes areas suggestive of old hemorrhagic changes. No extra axial fluid collections. Diffusion weighted and ADC mapping images reveal no recent ischemia. No midline shift or mass effect. PARANASAL SINUSES: Normal. MASTOIDS: Normal SUPERFICIAL/SURROUNDING SOFT TISSUES: Normal. IMPRESSION: 1. No acute intracranial process. 2. Mild deep white matter ischemic changes. 3. Left frontal encephalomalacia 4. Susceptibility artifacts in the frontal lobes area suggestive of old hemorrhagic changes. Reviewed, dictated and finalized at location A. IMPRESSION: 1. No acute intracranial process. 2. Mild deep white matter ischemic changes. 3. Left frontal encephalomalacia 4. Susceptibility artifacts in the frontal lobes area suggestive of old hemorr hagic changes.
--- OUTSIDE RECORDS SUMMARY | 2024-07-19 14:22 | XMS_ITS | Encounter Summary ---
Author Organization [facility] Healthcare Address [address] [place] [address] Care Team Providers Care Loan Broker Name Role Phone Sp Stafford MD Primary Care Provider [phone] Park Alcala Unavailable [phone] Carmelo Cross MD Unavailable [phone] Encounter Details Date Type Department Care Team (Late st Contact Info) Description 08/09/2023 Documentation [facility] [address] [place] [address] Inés Slade RN Social History Tobacco Use Types Packs/Day Years Used Date Smoking Tobacco: Every Day Cigarettes 0.1 46.4 Started: 1980 Passive Smoke Exposure: Current Smokeless Tobacco: Current Chew Comments:Pt states he is a 1 PPD smoker of cigarettes and has been smoking since grade school . Personal Safety Answer Date Recorded Have you ever been in or are you currently in a harmful physical or emotional relationship or is someone making you feel afraid or unsafe? Denies 08/09/2023 Sex and Gender Information Value Date Recorded Sex Assigned at Not on file Legal Sex Male 12:41 AM CDT Gender Identity Not on file Sexual Orientation Not on file documented as of this encounter Plan of Treatment Not on file documented as of this encounter Visit Diagnoses Not on filedocumented in this encounter Additional Health Concerns Infection Onset Date Last Indicated Resolved Time COVID: Suspected 08/09/2023 08/10/2023 08/10/2023 1:20 AM CDT documented as of this encounter Care Teams Loan Broker Relationship Specialty Start Date End Date Sp Stafford MD PCP - General Family Practice 08/08/23 Park Alcala PA [address] [place] [address] [address] [place] [address] Orthopedic Surgery 08/08/23 Carmelo Cross MD [address] [place] [address] [address] [place] [address] Surgeon Orthopedic Surgery 03/18/24 documented as of this encounter
--- OUTSIDE RECORDS SUMMARY | 2024-07-19 14:22 | XMS_ITS | Clinical Summary ---
Author Organization [facility] Address [address] [place] [address] Care Team Providers Care De Alcholizer Name Role Phone Sp Stafford MD Primary Care Provider [phone] Park Alcala Unavailable [phone] Carmelo Cross MD Unavailable [phone] Allergies No known active allergies Medications cyclobenzaprine (FLEXERIL) 10 mg tablet Take 1 tablet (10 mg total) by mouth daily 4 Active rosuvastatin (CRESTOR) 10 mg tablet Take 1 tablet (10 mg total) by mouth daily 4 Active ascorbic acid (VITAMIN C) 500 mg tablet,chewableInd ications:Vitamin deficiency prevention Take 1 tablet/chew tab (500 mg total) by mouth daily 30 tablet/chew tab 5 Active aspirin 81 mg enteric coated tabletIndications: Deep Vein Thrombosis Prevention Take 1 tablet (81 mg total) by mouth 2 (two) times a day 84 tablet 5 Active celecoxib (CeleBREX) 200 mg capsuleIndications :Pain Take 1 capsule (200 mg total) by mouth 2 (two) times a day 84 capsule 5 Active ondansetron ODT (ZOFRAN-ODT) 4 mg disintegrating tabletIndications: nausea and vomiting Take 1 tablet (4 mg total) by mouth every 6 (six) hours as needed for nausea or vomiting 20 tablet 2 5 Active senna-docusate (PERICOLACE) 8.6-50 mgIndications:cons tipation Take 2 tablets by mouth 2 (two) times a day 60 tablet 2 Active oxyCODONE-acetamin ophen (PERCOCET) 5-325 mg per tabletIndications: Pain Take 1 tablet by mouth every 4 (four) hours as needed for pain 40 tablet 5 025 Discontin ued(Patie nt Reported) Active Problems Problem Noted Date Diagnosed Date Aftercare following left hip joint replacement s urgery 04/07/2024 Primary osteoarthritis of left hip 01/14/2024 Cervical subluxation 08/12/2023 Assessment & Plan (08/12/2023 12:16 AM CDT): #C1 on C2 subluxation - Spine consult, s/o - MRI C-spine without evidence of acute injury, no neck pain on exam. - C-collar cleared Alcohol use 08/12/2023 Assessment & Plan (08/12/2023 12:17 AM CDT): - reports drinking ~ 1/5th of liquor a day, last drink 08/07 - monitor for signs of withdrawal - recommend against CIWA in setting of known head injury Subarachnoid hemorrhage 08/09/2023 Assessment & Plan (08/12/2023 12:02 PM CDT): - NSGY - q4h NC, non op, stable. F/u 4 - 6 weeks - Repeat head CT 08/10 with decrease in blood products - Keppra 500mg BID x 7 days - SBP goal <160, MAP goal <110 Discharge to home today, cleared by PT/OT Encounters Date Type Department Care Team Description 07/17/2024 1:00 PM CDT Office Visit [facility] Orthopedics and Sports Medicine [address] [place] [id number] Emily Boyce NP Primary osteoarthritis of left hip (Primary Dx) 07/17/2024 7:43 AM CDT - 07/17/2024 11:59 PM CDT Hospital Encounter [facility] Orthopedics and Sports Medicine [address] [place] [address] [address] [place] [address] Arrived Discharge Disposition: Discharge to home or self care 05/26/2024 Telephone [facility] Medical [facility] Orthopedics and Sports Medicine [address] [facility] [address] [place] [address] Vero Arthur MA 04/30/2024 Telephone [facility] Orthopedics and Sports Medicine [address] [facility] [address] [place] [address] Carmelo Cross MD from Last 3 Months Surgical History Surgery Date Site/Laterality Comments HERNIA REPAIR APPENDECTOMY Medical History Medical History Date Comments Brain bleed (HCC) 08/09/2023 Fell off of a bar stool and hit his head HLD (hyperlipidemia) Hyperthyroidism Family History Medical History Relation Name Comments Cancer Sister Relation Name Status Comments Sister Social History Tobacco Use Types Packs/Day Years Used Date Smoking Tobacco: Every Day Cigarettes 0.1 46.4 Started: 1980 Smokeless Tobacco: Never Tobacco Cessation:Ready to Q uit: No; Counseling Given: Yes Comments:Pt states he is a 1 PPD smoker of cigarettes and has been smoking since grade school . AUDIT-C Answer Date Recorded Q1: How often do you have a drink containing alcohol? 2-3 times a week 03/17/2024 Q2: How many drinks containi ng alcohol do you have on a typical day when you are drinking? 10 or more Q3: How often do you have si x or more drinks on one occasion? Daily or almost daily 03/17/2024 PHQ-2 Answer Date Recorded PHQ-2 Total Score (If total score is 3 or more points, staff should administer the PHQ-9) 3 03/17/2024 Hunger Vital Sign Answer Date Recorded Within the past 12 months, y ou worried that your food would run out before you got the money to buy more. Never true 11/13/19 24 Within the past 12 months, t he food you bought just didn't last and you didn't have money to get more. Never true 11/13/2023 PHQ-9 Answer Date Recorded PHQ-9 Total Score 9 03/17/2024 Personal Safety Answer Date Recorded Have you ever been in or are you currently in a harmful physical or emotional relationship or is someone making you feel afraid or unsafe? Denies 03/17/2024 Sex and Gender Information Value Date Recorded Sex Assigned at Not on file Legal Sex Male 12:41 AM CDT Gender Identity Not on file Sexual Orientation Not on file Obstetrics History Last Filed Vital Signs Vital Sign Reading Time Taken Comments Blood Pressure 146/94 07/17/2024 1:15 PM CDT Pulse 99 07/17/2024 1:15 PM CDT Temperature 36.5 C (97.7 F) 03/18/2024 7:00 AM DIRECTOR TALENT Respiratory Rate 18 03/18/2024 7:00 AM DIRECTOR TALENT Oxygen Saturation 93% 03/18/2024 7:00 AM DIRECTOR TALENT Inhaled Oxygen Concentration - - Weight 108 kg (238 lb) 07/17/2024 1:15 PM CDT Height 177.8 cm (5' 10 ) 07/17/2024 1:15 PM CDT Body Mass Index 34.15 07/17/2024 1:15 PM CDT Plan of Treatment Health Maintenance Due Date Last Done Comments Colon Cancer Screening-Colonoscopy 1968 Hepatitis C Screening 1968 Prostate Cancer Screening-PSA 1968 Hepatitis B Screening 1986 Regular Well Visit/Exam 18-64 1986 Pneumococcal vaccine <65 (1 of 2 - PCV) 06/23/1987 Zoster Vaccine (1 of 2) 2018 Influenza Vaccine (Season Ended) 2024 Depression Screening 03/04/2025 03/04/2024, 03/04/20 DTaP/Tdap/Td Vaccine (3 - Td or Tdap) 10/15/2032, 05/26/2014 Medical Devices Implanted Type Area Wire Threader Device Identifier Shelf Expiration Date Model / Serial / Lot [employer] Reading 54mm 36mm Hip Neutral Liner Acetabular Altrx Sterile Latex Free [id number] - [id number] Implanted:Qty: 1 on 03/17/2024 by Carmelo Cross MD at [facility] Left: Hip [employer] [id number] 12/02/2028 [id number] / / [id number] [employer] Reading 54mm Sector Hip Shell Acetabular Gription Sterile Latex Free [id number] - [id number] Implanted:Qty: 1 on 03/17/2024 by Carmelo Cross MD at [facility] Left: Hip [employer] [id number] 12/02/2033 [id number] / / [id number] [employer] Stem Femoral Hip Porous Proximal Collared Actis Titanium High Offset Size 4 [id number] - [id number] Implanted:Qty: 1 on 03/17/2024 by Carmelo Cross MD at [facility] Left: Hip [employer] [id number] 08/02/2033 [id number] / / [id number] [employer] Articul/Zach 36mm Cementless Hip +8.5mm 02/15 Taper Head Femoral Latex Free 1365-36-330 - [id number] Implanted:Qty: 1 on 03/17/2024 by Carmelo Cross MD at [facility] Left: Hip [employer] [id number] 12/02/2028 1365-36-330 / / [id number] Procedures Procedure Name Priority Date/Time Associated Diagnosis Comments XR HIP LEFT 2 OR 3 VIEWS Schedule Routine, Read Routine (OP Routine) 07/17/2024 1:08 PM CDT Primary osteoarthritis of left hip from Last 3 Months Results * XR Hip Left 2 or 3 Views (07/17/2024 1:08 PM CDT) Anatomical Region Laterality Modality Lower Extremities, Hip, Pelvis Left D igital Radiography Narrative 07/17/2024 1:29 PM CDT Radiographs taken of the left hip today reveal a total hip arthroplasty in appropriate position with no interval change from the time of surgery. Emily Boyce NP IMG XR PROCEDURES Final Result from Last 3 Months Insurance [facility] Advance Directives For more information, please contact: [phone] * Full Code (Latest Code Status on File) Date Activated Date Inactivated Comments 03/17/2024 12:34 PM 03/18/2024 5:00 PM * Full Code Date Activated Date Inactivated Comments 08/09/2023 8:56 PM 08/12/2023 4:20 PM Care Teams De Alcholizer Relationship Specialty Start Date End Date Sp Stafford MD PCP - General Family Practice 08/08/23 Park Alcala PA [address] [place] [address] [address] [place] [address] Orthopedic Surgery 08/08/23 Carmelo Cross MD [address] [place] [address] [address] [place] [address] Surgeon Orthopedic Surgery 03/18/24
--- OUTSIDE RECORDS SUMMARY | 2024-07-19 14:22 | XMS_ITS | Encounter Summary ---
Author Organization [facility] Healthcare Address [address] [place] [address] Care Team Providers Care Geosciences Faculty Member Name Role Phone Sp Stafford MD Primary Care Provider [phone] Park Alcala Unavailable [phone] Carmelo Cross MD Unavailable [phone] Reason for Visit * Diagnostic Imaging (Routine) - Closed Specialty Diagnoses / Procedures Referred By Contac t Referred To Contact Diagnoses Primary osteoarthritis of left hip Procedures XR Hip Left 2 or 3 Views Emily Boyce NP [address] [address] Phone: tel: fax: Referral ID Status Reason Start Date Expiration Date Visits Re quested Visits Authorized [id number] Closed 07/17/2024 08/16/2025 1 1 Encounter Details Date Type Department Care Team (Latest Contact Info) Description 07/17/2024 7:43 AM CDT - 07/17/2024 11:59 PM CDT Hospital Encounter [facility] Orthopedics and Sports Medicine [address] [facility] [address] [place] [phone] Arrived Discharge Disposition: Discharge to home or self care Social History Tobacco Use Types Packs/Day Years Used Date Smoking Tobacco: Every Day Cigarettes 0.1 46.4 Started: 1980 Smokeless Tobacco: Never Comments:Pt states he is a 1 PPD [...] on file documented as of this encounter Medications at Time of Discharge cyclobenzaprine (FLEXERIL) 10 mg tablet Take 1 tablet (10 mg total) by mouth daily 05/14/2023 ondansetron ODT (ZOFRAN-ODT) 4 mg disintegrating tabletIndications:na usea and vomiting Take 1 tablet (4 mg total) by mouth every 6 (six) hours as needed for nausea or vomiting 20 tablet 2 03/18/2024 rosuvastatin (CRESTOR) 10 mg tablet Take 1 tablet (10 mg total) by mouth daily 05/03/2023 senna-docusate (PERICOLACE) 8.6-50 mgIndications:consti pation Take 2 tablets by mouth 2 (two) times a day 60 tablet 2 03/18/2024 documented as of this encounter Discharge Disposition Disposition Code Departure Means Destination Discharge to home or self care documented in this encounter Plan of Treatment Not on file documented as of this encounter Procedures Procedure Name Priority Date/Time Associated Diagnosis Comments XR HIP LEFT 2 OR 3 VIEWS Schedule Routine, Read Routine (OP Routine) 07/17/2024 1:08 PM CDT Primary osteoarthritis of left hip documented in this encounter Results * XR Hip Left 2 or 3 Views (07/17/2024 1:08 PM CDT) Anatomical Region Laterality Modality Lower Extremities, Hip, Pelvis Left D igital Radiography Narrative 07/17/2024 1:29 PM CDT Radiographs taken of the left hip today reveal a total hip arthroplasty in appropriate position with no interval change from the time of surgery. Emily Boyce CLINICAL RADIOLOGIST IMG XR PROCEDURES Final Result documented in this encounter Visit Diagnoses Not on filedocumented in this encounter Care Teams Geosciences Faculty Member Relationship Specialty Start Date End Date Sp Stafford MD PCP - General Family Practice 08/08/23 Park Alcala PA [address] [facility] [place] [address] Orthopedic Surgery 08/08/23 Carmelo Cross MD [address] [place] [address] SK[place]NY DAVID [address] Surgeon Orthopedic Surgery 03/18/24 documented as of this encounter
--- OUTSIDE RECORDS SUMMARY | 2024-07-19 14:22 | XMS_ITS | Referral Summary ---
Author Organization [facility] Address [address] [place] [address] Care Team Providers Care Wool Shearer Name Role Phone Sp Stafford MD Primary Care Provider [phone] Park Alcala Unavailable [phone] Carmelo Cross MD Unavailable [phone] Encounters Date Type Department Care Team Description 07/17/2024 7:43 AM CDT - 07/17/2024 11:59 PM CDT Hospital Encounter [facility] Medical [facility] Orthopedics and Sports Medicine [address] [place] [address] [address] [place] [phone] Arrived Discharge Disposition: Discharge to home or self care 07/17/2024 1:00 PM CDT Office Visit [facility] Orthopedics and Sports Medicine [address] [place] [address] [address] [place] [phone] Emily Boyce NP Primary osteoarthritis of left hip (Primary Dx) 05/26/2024 Telephone [facility]ics and Sports Medicine [address] [place] [address] [address] [place] [phone] Vero Arthur MA 04/30/2024 Telephone [facility]opedics and Sports Medicine [address] [place] [address] [address] [place] [phone] Carmelo Cross MD from Last 3 Months Allergies No known active allergies Medications cyclobenzaprine [...] (two) times a day 60 tablet 2 5 Active oxyCODONE-acetamin ophen (PERCOCET) 5-325 mg per [...] Discharge to home today, cleared by PT/OT Social History Tobacco Use Types Packs/Day Years [...] on file Sexual Orientation Not on file Last Filed Vital Signs Vital Sign Reading Time Taken Comments Blood Pressure 146/94 07/17/2024 1:15 PM CDT Pulse 99 07/17/2024 1:15 PM CDT Temperature 36.5 C (97.7 F) 03/18/2024 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 Respiratory Rate 18 03/18/2024 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 Oxygen Saturation 93% 03/18/2024 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 Inhaled Oxygen Concentration - - Weight 108 kg (238 lb) 07/17/2024 1:15 PM CDT Height 177.8 cm (5' 10 ) 07/17/2024 1:15 PM CDT Body Mass Index 34.15 07/17/2024 1:15 PM CDT Plan of Treatment Not on file Medical Devices Implanted Type Area Scene Painter Device Identifier Shelf Expiration Date Model / Serial / Lot [employer] Moran 54mm 36mm Hip Neutral Liner Acetabular Altrx Sterile Latex Free [id number] - [id number] Implanted:Qty: 1 on 03/17/2024 by Carmelo Cross MD at [facility] Left: Hip [employer] [id number] 12/02/2028 [id number] / / [id number] [employer] Moran 54mm Sector Hip Shell Acetabular Gription Sterile Latex Free [id number] - [id number] Implanted:Qty: 1 on 03/17/2024 by Carmelo Cross MD at [facility] Left: Hip [employer] [id number] 12/02/2033 [id number] / / [id number] [employer] Stem Femoral Hip Porous Proximal Collared Actis Titanium High Offset Size 4 [id number] - [id number] Implanted:Qty: 1 on 03/17/2024 by Carmelo Cross MD at [facility] Left: Hip [employer] [id number] 08/02/2033 [id number] / / [id number] [employer] Articul/Zach 36mm Cementless Hip +8.5mm 14 Taper Head Femoral Latex Free 1365-36-330 - [id number] Implanted:Qty: 1 on 03/17/2024 by Carmelo Cross MD at [facility] Left: Hip [employer] [id number] 12/02/2028 1365-36-330 / / [id number] Procedures Procedure Name Priority Date/Time Associated Diagnosis [...] Final Result from Last 3 Months Insurance [facility] Advance Directives For more information, please contact: [phone] * Full Code (Latest Code Status on File) Date Activated Date Inactivated Comments 03/17/2024 12:34 PM 03/18/2024 5:00 PM * Full Code Date Activated Date Inactivated Comments 08/09/2023 8:56 PM 08/12/2023 4:20 PM Care Teams Wool Shearer Relationship Specialty Start Date End Date Sp Stafford MD PCP - General Family Practice 08/08/23 Park Alcala PA [address] [place] [address] [place] [address] Orthopedic Surgery 08/08/23 Carmelo Cross MD [address] [place] [address] [place] [address] Surgeon Orthopedic Surgery 03/18/24
== END 2024-07-19 14:19 | disposition home or self-care (01) ==
PROVIDERS: PCP Family Medicine; Visit Provider Family Medicine
DX: R55 Syncope and collapse (principal); G43.909 Migraine, unspecified, not intractable, without status migrainosus; R93.0 Abnormal findings on diagnostic imaging of skull and head, not elsewhere classified
CPT/HCPCS: 70551